=== PATIENT | male | born 1940 | race Caucasian/White ===

== ENCOUNTER 2021-07-09 12:58 | Emergency (ER) | payer MEDICARE, OTHER ==
[2021-07-09 15:11] LABS: RED BLOOD COUNT 4.56 M/UL (4.20-5.50); WHITE BLOOD COUNT 8.9 K/UL (4.5-11.0)
[2021-07-09 15:34] LABS: BUN/CREATININE RATIO 25 (0-10)
[2021-07-09] MEDS ORDERED: PREDNISONE 20 M20 MG PO (16:45)
[2021-07-09] MEDS ORDERED: BROMFED DM COU473 ML PO (16:46)
== END 2021-07-09 17:14 | disposition home or self-care (01) ==
LOC: ER1 12:58
PROVIDERS: Nurse Practitioner
DX: J20.9 Acute bronchitis, unspecified (principal); J04.0 Acute laryngitis; Z20.822 Contact with and (suspected) exposure to COVID-19; I10 Essential (primary) hypertension; E11.9 Type 2 diabetes mellitus without complications; Z88.8 Allergy status to other drugs, medicaments and biological substances
CPT/HCPCS: 0240U; 71045; 80053; 82550; 82553; 84484; 85025; 96374; 99283; J1100